=== PATIENT | male | born 1970 | race Caucasian/White ===

== ENCOUNTER 2020-03-10 10:00 | Outpatient (RCR) | payer OTHER, SELFPAY ==
--- NOTE | 2020-03-03 09:29 | HO.PHPPROGNO ---
Subjective Subjective Date of Service: 03/02/20 Reason For Visit: F33.2 Interim History: the patient has been anxious and ruminating. His sister 2 weeks ago suddenly in a car accident he will be attending the . He has been having difficulty with his ex- who has been making things more difficulty and less collaborative since she started dating someone. Patient on Seroquel he is only able to take a half tab 2 times a day 1 tab bedtime. Nortriptyline was on hold secondary to agitation. No SI Side effects from medications: Yes (sedation) Attending Groups: Yes Mental Status Exam Mental Status Exam Patient Orientation: Person, Place, Time and Situation Level of Consciousness: Awake and Appropriate Patient Behavior: Appropriate Mood Description: Depressed, Anxious and Apprehensive Affect Description: Anxious and Labile (mild) Patient Cognition Impaired: No Ability to Follow Directions: Good Speech Pattern: Clear Memory Description: Intact Hallucinations: None Delusions: Not Present Thought Content: positive for Preoccupation and positive for Logical Depressive Symptoms: Increased Anxiety and Increased Irritability Judgement: Good Judgement and Insight: patient anxious and ruminating but was logical cooperative able to problem solve asking for help Assessment & Plan Assessment & Plan (1) PTSD (post-traumatic stress disorder): Status: Acute Code(s): F43.10 - Post-traumatic stress disorder, unspecified (2) Recurrent depressive disorder, current episode moderate: Status: Inactive Code(s): F33.1 - Major depressive disorder, recurrent, moderate (3) Agitated depression: Status: Inactive Code(s): F32.2 - Major depressive disorder, single episode, severe without psychotic features Assessment and Plan: continue PHP treatment plan restart nortriptyline at 10 mg at bedtime continue Seroquel consider change to Abilify question agitated depression PTSD versus cycling mood disorder Certification I certify that partial hospital treatment is medically necessary due to the symptoms and problems resulting from the patient's mental illness and the failure to treat the patient at the partial hospital level of care would likely result in the patient requiring inpatient psychiatric care which could not be prevented at a less intensive level of care. Greater than 50% of the session was spent on counseling and/or coordination of care Discharge Plan Discharge Attending provider: Malcolm Alonso
--- NOTE | 2020-03-03 14:25 | PC.NURSE ---
Patient did not show up to the program this morning. Called patient and he stated he was attending his sisters . Staff was not aware of this. Patient requested a call later in the afternoon as he wanted staff to check in with him. Called patient back. Patient presented with depressed mood. Stated his sister passed 3 weeks ago in a fatal car accident stating her car went over a bridge. Patient upset as his ex would not let their daughter attend the . Patient did state that he has her Friday and is looking forward to spending time with her. Patient plans on attending the program on Friday. Looking into grief groups online. Patient denied SI or thoughts to harm himself.
--- NOTE | 2020-03-06 12:44 | P.PNPSP_ITS ---
Subjective Subjective Date of Service: 03/06/20 Reason For Visit: F33.2 Complains of panic attacks racing thoughts f Interim History: the patient is seen tele health visit at [facility]. Patient seems somewhat calmer more stable and less reactive. He remains quite anxious and ruminating particularly in the evening when he is alone. He does have intermittent panic attacks sense of dread and fear that he will not wake up. He has been taking Seroquel 12.5 mg twice a day and 25 mg at bedtime lorazepam I 0.5 mg at bedtime. No active SI sleep is fair concentration impaired ability to enjoy things impaired. He was able to tolerate his sister's and this went reasonably well Side effects from medications: Yes (sedation) Attending Groups: Yes Mental Status Exam Mental Status Exam Patient Orientation: Person, Place, Time and Situation Level of Consciousness: Awake Patient Behavior: Appropriate and Talkative Mood Description: Anxious and Apprehensive Affect Description: Depressed, Anxious and Apprehensive Ability to Follow Directions: Good (improving) Speech Pattern: Clear Hallucinations: None Delusions: Not Present Thought Process: Intact and Distracted Thought Content: positive for Obsessional Thoughts, positive for Hypochondriasis, positive for Suicidal Ideation (denies ) and positive for Homicidal Ideation (none) Depressive Symptoms: Increased Anxiety, Diff. Making Decisions and Difficulty Concentrating Judgement and Insight: improving insight judgment less agitation Assessment & Plan Assessment & Plan (1) PTSD (post-traumatic stress disorder): Status: Acute Code(s): F43.10 - Post-traumatic stress disorder, unspecified (2) Agitated depression: Status: Acute Code(s): F32.2 - Major depressive disorder, single episode, severe without psychotic features (3) Panic disorder: Status: Acute Code(s): F41.0 - Panic disorder [episodic paroxysmal anxiety] Assessment and Plan: reviewed with patient relaxation breathing for panic. Self talk. Patient will start clonazepam 0.5 mg at bedtime and a 0.5 mg in the evening this was prescribed 1 week ago at his doctor's office. Seroquel increased to 12.5 mg the morning 25 mg approximately at 04:00 o'clock in 25 mg at bedtime increase nortriptyline to 20 mg at bedtime. Patient the age to understand regarding medication like nortriptyline will need to be taken for a number of weeks for it to have its affect he does seem to be improving Certification I certify that partial hospital treatment is medically necessary due to the symptoms and problems resulting from the patient's mental illness and the failure to treat the patient at the partial hospital level of care would likely result in the patient requiring inpatient psychiatric care which could not be prevented at a less intensive level of care. Greater than 50% of the session was spent on counseling and/or coordination of care Discharge Plan Discharge Attending provider: Malcolm Alonso
--- NOTE | 2020-03-08 15:07 | PM.EVENT ---
Event Note Event Note: [facility] [employer] was asked by [facility] team to call patient as he was reporting insomnia. Several calls to pt who unfortunately has an incorrect telephone number in the system. Pt reached at [phone]. He reports severe anxiety and at the same time feeling drugged, tired, oversleeping. Denies precipitant other than to report the passing of his sister last week, but in reflecting thought he did well managing her services. Reports just increasing Nortriptyline to [address] Alonso and initiating Klonopin 0.5 mg evening and 0.5 mg hs from OP team. Expressed concern with Seroquel as he believes that 25 mg HS will not allow him to be coherent and able to awaken should his child need his attention during the night. Currently reports taking HS dose at 10 pm. Discussed sleep schedule and allowing medications time to metabolize. Report current sleep schedule is 2am-7am Sun-Wed, and essentially no sleep Wed-Sat as he fears dying in his sleep. Reports he has his daughter Sun-Wed and is able to sleep for a brief time while she is there. Discussed his belief that Seroquel makes him more agitated. Also reports APPLE without CPAP due to claustrophobia. Pt precipitously ended our discussion stated he needed to attend a vet appointment as he was planning to have his cat euthanized today. No new interventions were implemented as we were still in an assessment/problem solving phase of our discussion.
--- NOTE | 2020-03-09 07:30 | PC.NURSE ---
Pt called (7:25 am) and I spoke with him. He sounded agitated and said he wont be able to attend group today. I asked if he was able to talk to the Prescriber yesterday (Daniel Mena APRN), and he said yes. He complained/ shouted that no one was willing to help him yesterday, stating noone is there for me anyway so what does it matter . He said he hasn't slept for three days. He said DEBBIE Sanchez told him the doctor would call him today, but he said he wont be around to receive the call. When I asked what he meant by this, he said, Well, I'm not suicidal! . He said he will be too busy today to receive a call from the doctor today. I asked if he would come in tomorrow, and he said probably not. No one is there for me anyway. Theres no need. When I began to speak, he hung up. He then called Valencia Gibbons ZURDO and spoke with her.
--- NOTE | 2020-03-09 08:36 | PC.NURSE ---
Team met to discuss concerns regarding Pt and how much he is struggling with reports of him not sleeping for 72 hours and having intense anxiety. Discussed the recommendation of a crisis assessment due to these concerns. Attempted to call pt to recommended a crisis assessment. Left message for pt to return call. Will try again later.
--- NOTE | 2020-03-09 11:27 | PC.NURSE ---
Pt had called Christen (his assigned clinician) earlier this morning to report he would not be in group today due to feeling tired. He also stated this information in a message left on the [facility] intake line. He called Valencia (not his assigned clinician) who told him if he wasn't in group for the day he would not be able to speak with a medication provider and directed him to call this clinician. The following information was obtained over a series of phone calls from [phone] to [phone] because the pt's phone kept dropping the call. Pt began the conversation yelling at this clinician stating we lied and threatened him when he was told that he could not see a medication provider if he was not going to attend groups today. Attempted to explain that it was just for the day and he could see a medication provider on his next scheduled day of attendance as well as the main focus of treatment in [facility] is group treatment. He continued to interrupt the explanation and yell at this clinician, stating it was our fault he drank an energy drink so he could stay up for groups. Attempted to explain we were under the impression he had called out for the day as stated in a voicemail and reported to Christen this morning. Recommended due to the level of distress, he obtain a crisis evaluation. Pt refused, stating he was not suicidal, he doesn't have those problems , and he was not going to hurt himself. Attempted to explain crisis is also for those are experiencing disregulation and other mental health symptoms. He still refused a crisis assessment. At the end of the conversations, pt presented as calmer with little insight to his intense emotional reaction. Pt reported he was going to take his medication and go to bed and he would attend [facility] tomorrow for his last day of treatment.
--- NOTE | 2020-03-10 15:35 | PC.NURSE ---
I called patient and reviewed discharge information. He informed me that his therapist, Alycia Beckford at [facility], has released him from her care. He said he's not sure if they are transferring him to another therapist. We discussed possibility of doing the day treatment program. I called [facility] and the business operations specialist told me that pt does not appear to be released from Alycia Beckford's care. I then was transferred to this therapist's and I left a message inquiring about the situation. I also called and spoke to Bernadette Alfaro at [facility] about day treatment. She said that the patient is known to them and that he is not a good fit for day treatment, as they only run one group a day and pt needs more in their opinion. I then called and LM to see if pt might attend [facility]'s PHP.
--- NOTE | 2020-03-11 00:32 | HO.PHPPROGNO ---
Subjective Subjective Reason For Visit: F33.2 Complains of panic attacks racing thoughts f Interim History: patient has been anxious complains of insomnia he states in speaking to his he had done best on a combination of citalopram and Lamictal. He is only taking Seroquel 12.5 mg at bedtime has not started clonazepam continues to have a difficult time at the [facility] he is scheduled for discharge today Mental Status Exam Mental Status Exam Narrative: denies any active thoughts of self-harm future oriented asking for help overly triggered at [facility] Patient Orientation: Person, Place, Time and Situation Level of Consciousness: Awake Patient Behavior: Appropriate and Talkative Mood Description: Anxious and Apprehensive Affect Description: Depressed, Anxious and Apprehensive Patient Cognition Impaired: No Ability to Follow Directions: Fair (improving) Speech Pattern: Clear Memory Description: Intact Assessment & Plan Assessment & Plan (1) PTSD (post-traumatic stress disorder): Status: Acute Code(s): F43.10 - Post-traumatic stress disorder, unspecified (2) Agitated depression: Status: Acute Code(s): F32.2 - Major depressive disorder, single episode, severe without psychotic features (3) Panic disorder: Status: Acute Code(s): F41.0 - Panic disorder [episodic paroxysmal anxiety] Assessment and Plan: patient appears generally stable for discharge future oriented no SI. Has been triggered [facility] at times he is asking to be restarted on citalopram 5 mg daily Lamictal 12.5-25 mg daily which he states had been helpful to him in the past according to his ex-. Patient will follow up with his outpatient psychiatrist and therapist Greater than 50% of the session was spent on counseling and/or coordination of care Discharge Plan Discharge Attending provider: Malcolm Alonso Medications: New lamotrigine [Lamictal] 25 mg tablet 25 mg PO DAILY 30 Days Qty: 30 RF: 0 citalopram 10 mg tablet See Rx Instructions .ROUTE .COMPLEX 30 Days Qty: 14 RF: 0 Referrals: Alin Messina MD [Physician] - ( patient started on citalopram 5 mg Lamictal 25 mg was triggered at the [facility] overly stimulating less agitated)
== END 2020-03-10 23:55 | disposition home or self-care (01) ==
LOC: HO.PHPA 10:00
PROVIDERS: Visit Provider Psychiatry & Neurology Psychiatry
DX: F33.2 Major depressive disorder, recurrent severe without psychotic features (principal); F43.10 Post-traumatic stress disorder, unspecified; F41.0 Panic disorder [episodic paroxysmal anxiety]; Z79.899 Other long term (current) drug therapy
CPT/HCPCS: 90853; 99213

== ENCOUNTER 2020-07-26 11:15 | Outpatient (RCR) | payer OTHER, SELFPAY ==
[2020-07-26 12:16] VITALS: BMI 41.5
--- NOTE | 2020-07-26 12:35 | PC.ADMIT ---
Patient is a 49 year old male who referred himself to the [facility] program d/t increased depression with passive SI with increased anxiety and PTSD sxs. Patient was on a GRAHAM from work d/t the pandemic however he recently returned to work and is extremely fearful he will contract COVID. In addition patient reports multiple medical issues thus increasing his anxiety about brook the Virus. Patient also stated he is having issues with his ex-. Patient stated he is here at [facility] d/t, I need to get my anxiety under control and stop thinking the way I do. Patient has NIDDM and stated he has not checked his blood sugars in 2 months d/t increasing anxiety. Stated he has all the equipment to complete. Patient stated he will try and take it tomorrow. Historically patient reports his Blood Sugars run in the 100's-150's. Patient reports that he has been taking his medications as prescribed. Reconciled patient's medications with patient and patient's pharmacy. Patient presents with depressed anxious affect. Denied SI at present. Asked who he could call if feeing unsafe and patient stated his mother or crisis. Patient gave verbal permission to email him a copy of his safety plan. Patient c/o L knee pain. Stated he has an appointment to get an x-ray in a few days. In addition, patient reports poor sleep and has been binge eating.
--- NOTE | 2020-07-26 16:31 | HO.PS.ADMBH ---
HPI Chief Complaint: depression Sources of Information: patient interviewed and chart reviewed HPI Narrative: 49 yo male, hx of depression, PTSD reports an increase in depressive, anxious sx with paranoia and insomnia ([place]). Reports increase in appetite-denies SI- never-I have a child . Reports sx increase with a return to work (pt works in residential care). COVID changes and irregularities have been a major stress-pt discussed concerns with employer and was told he could be terminated. Past Psychiatric History: Sees Linda CRANDALL for psychotherapy and Dr. Canales for psychopharmacology Medical Evaluation Reviewed: No (no evaluation to review.) [facility] Medical History Abdominal hernia Agitated depression Diverticulitis GERD (gastroesophageal reflux disease) Hyperlipemia Hypertension Non-insulin dependent diabetes mellitus Panic disorder PTSD (post-traumatic stress disorder) Recurrent depressive disorder, current episode moderate Family History: depression, anxiety, addiction Social History: Lives alone, works in residential care. Has a daughter and step-son Substance History: alcohol every 2-3 months Trauma History: yes Diagnostics Vital Signs (24Hr): Body Mass Index 41.5 Meds/Allergies Meds Narrative: Atenolol, Azelastine [place], Cetrinzine, Chlorthalidone, Jardiance, Simvastatin, Omeprazole, Losartin Nortriptyline 10 mg tid Hydroxyzine daily Lorazepam 0.5 mg bid Allergies Allergies Allergy/AdvReac Type Severity Reaction Status Date / Time Iodinated Contrast Media Allergy Intermediate ANAPHYLAXIS Unverified 02/17/20 16:12 [IV DYE, IODINE CONTAINING CONTRAST ] Mental Status Exam Mental Status Exam Patient Appearance: Appropriate Patient Orientation: Person, Place, Time and Situation Level of Consciousness: Awake and Alert Patient Behavior: Appropriate Mood Description: Depressed and Anxious Affect Description: Flat Patient Cognition Impaired: No Ability to Follow Directions: Good Speech Pattern: Spontaneous Speech Memory Description: Intact Hallucinations: None Delusions: Not Present Thought Process: Intact Thought Content: positive for Intact Depressive Symptoms: Increased Anxiety, Insomnia, Diff. Making Decisions (work, COVID has put him to some hard decision making tasks), Difficulty Sleeping, Increased Fatigue and Thoughts of /Suicide (denies plan, intent) Judgement: Good Assessment & Plan Assessment & Plan (1) PTSD (post-traumatic stress disorder): Status: Acute Code(s): F43.10 - Post-traumatic stress disorder, unspecified (2) Agitated depression: Status: Acute Code(s): F32.2 - Major depressive disorder, single episode, severe without psychotic features Assessment and Plan: -Seroquel 25-50 mg HS prn insomnia (3) Panic disorder: Status: Acute Code(s): F41.0 - Panic disorder [episodic paroxysmal anxiety] Patient educated on: medication risk/benefits and therapeutic strategies Informed Consent: understands and further education needed Reason for continued partial hosp. stay Substantial Risk for: rapid decompensation Certification I certify that partial hospital treatment is medically necessary due to the symptoms and problems resulting from the patient's mental illness and the failure to treat the patient at the partial hospital level of care would likely result in the patient requiring inpatient psychiatric care which could not be prevented at a less intensive level of care. Telehealth Telehealth Location of provider rendering services: practice address Location of patient: address on file Patient Identification confirmed using: Name, : Yes Telehealth method: video Patient verbally consented to treatment: Yes Patient verbally consented to billing insurance company: Yes Patient informed of any privacy concerns related to visit: Yes Time spent with patient (mins): 35
--- NOTE | 2020-07-27 15:44 | PC.NURSE ---
Pt did not show for treatment today, and did not call. I called him and LM at 9:20am. After consulting with [facility], I called his emergency contact (his mother) and spoke to her. She said he is probably sleeping, as he worked all night. 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 She said she called also and LM. She said she is at work, and cannot go check on him, but said she is not at all concerned.
--- NOTE | 2020-07-28 12:36 | PC.NURSE ---
Pt did not attend group but called later in the morning reporting he could not leave from work both days. Returned pt call left a message regarding his absences and lack of contact. Told him if he did not attend on Friday that he would have the complete a re assessment.
== END 2020-07-26 23:55 | disposition left against medical advice (07) ==
LOC: HO.PHPA 11:15
PROVIDERS: Visit Provider Psychiatry & Neurology Psychiatry
DX: F43.10 Post-traumatic stress disorder, unspecified (principal); F32.2 Major depressive disorder, single episode, severe without psychotic features; F41.0 Panic disorder [episodic paroxysmal anxiety]
CPT/HCPCS: 90791; 90853

== ENCOUNTER 2021-11-08 11:15 | Outpatient (RCR) | payer OTHER, SELFPAY ==
--- NOTE | 2021-10-22 09:54 | PC.NURSE ---
Patient did not show up to community morning meeting. Patient called Estefani and left a message stating he did not receive a link to the meeting or groups. Estefani received message at 0945. Called patient and left him a message to call me back.
[2021-10-23 12:11] VITALS: BMI 41.5
--- NOTE | 2021-10-23 14:17 | PC.ADMIT ---
Patient is a 51 year old male who has a dx of MDD, recurrent severe. He was referred to PHP by his therapist d/t an increase in depression, anxiety, and feeling worthless and useless at times. Patient reported poor sleep at times and is scheduled for a sleep study in November 2021 regarding Sleep Apnea. Patient has been isolating on the days he does not have his 7 year old daughter. He reportedly has his daughter 3 days a week. Patient also reported feelings of frustration with his ex-. Patient is alert and oriented x4. Calm and cooperative. Presented with depressed mood and affect. Denied SI, stating never . Emailed patient a copy of his safety plan if needed. Medications reconciled with patient and patient's pharmacy. Patient stated he is not taking Hydroxyzine at HS as it made him feel too drowsy in the morning. Also stated he was taken off Atenolol and not continuing Zyrtec. In addition he stated he stopped Nortriptyline as it made him feel too drowsy. Patient reports he does not have a prescriber at this time as Dr Amos left the practice a year ago and patient was not assigned another prescriber thus his PCP has been prescribing. Staff is aware.
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
--- NOTE | 2021-10-24 16:04 | PC.NURSE ---
I called and spoke to pt. Reviewed treatment plan and discussed possibilities for aftercare. Pt has a therapist, but has not had a med provider since the loss of Dr. García a year ago. After discussing option, pt opted to have me refer him to a local mental health agency for therapy and med management. I agreed to do so.
--- NOTE | 2021-10-25 16:04 | PC.NURSE ---
Case opened in treatment team.
--- NOTE | 2021-10-26 10:55 | P.PNPSP_ITS ---
Subjective Subjective Date of Service: 10/26/21 Reason For Visit: anxiety,PTSD Guardianship: No Medical Problems Affecting Mental Status: No Interim History: Anxious, depressed mood and affect. Found out last night he is being evicted, currently distraught, focused on housing. Has not yet started sertraline. No reports of SI/HI/SIB, no safety concern. Medication Compliance: Intermittent Side effects from medications: No Attending Groups: Yes Review of Systems Acute medical concerns: No Medical Review of Systems: unchanged Review of Systems Review of Systems Yes all other systems are reviewed and are negative Constitutional: Reports no additional constitutional complaints Mental Status Exam Mental Status Exam Narrative: NAD. No SI/HI reported. No perceptual disturbances noted. Patient Appearance: Appropriate Patient Orientation: Person, Place, Time and Situation Level of Consciousness: Awake, Appropriate and Alert Patient Behavior: Appropriate, Cooperative and Good Eye Contact Mood Description: Depressed and Anxious Affect Description: Depressed, Anxious and Labile Patient Cognition Impaired: No Ability to Follow Directions: Good Speech Pattern: Clear, Appropriate and Coherent Memory Description: Intact Hallucinations: None Delusions: Not Present Thought Process: Intact Thought Content: positive for Intact Depressive Symptoms: Increased Anxiety, Difficulty Sleeping, Loss of Int. in Activity, Hopelessness, Feelings of Guilt, Unhappiness, Increased Fatigue and Low Self Esteem Judgement: Fair Diagnostics Vital Signs (24Hr): BMI result Body Mass Index 41.5 Assessment & Plan Assessment & Plan (1) Major depressive disorder, recurrent severe without psychotic features: Status: Acute Code(s): F33.2 - Major depressive disorder, recurrent severe without psychotic features Assessment and Plan: Patient presents today with increased anxiety, mood lability. We reviewed symptoms of agitated depression, bipolar disorder. Also discussed risks of activation with SSRI if does have an underlying mood disorder such as bipolar. He stated he has not even started taking the sertraline yet. He states that he does have increased anxiety and agitation, mostly related to receiving eviction notice last evening. Request medications to help with this. At this time he would like to continue with the sertraline, and was advised to stop immediately if he finds it activating in any way. No thoughts of harm to self or others, no safety concern at this time. Discussed starting the sertraline, also adding quetiapine at this time. Discussion included risks, benefits, adverse effects both common serious, alternatives of treatment. Patient was agreeable with this plan. Phone numbers provided for legal aged and way [employer], in order to help with eviction and rental assistance. (2) Panic disorder: Status: Acute Code(s): F41.0 - Panic disorder [episodic paroxysmal anxiety] (3) PTSD (post-traumatic stress disorder): Status: Acute Code(s): F43.10 - Post-traumatic stress disorder, unspecified (4) Agitated depression: Status: Acute Code(s): F32.2 - Major depressive disorder, single episode, severe without psychotic features Assessment and Plan: History of diagnosis of agitated depression. Plan 1. Continue with current [facility] plan of care. 2. 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 3. Start quetiapine 25 mg t.i.d. p.r.n. for anxiety. 4. Follow-up as per protocol. Patient educated on: diagnosis, medication risk/benefits and therapeutic strategies Informed Consent: understands Reason for contiued partial hosp. stay Substantial Risk for: inability to function, rapid decompensation and med/psych decompensation Certification I certify that partial hospital treatment is medically necessary due to the symptoms and problems resulting from the patient's mental illness and the failure to treat the patient at the partial hospital level of care would likely result in the patient requiring inpatient psychiatric care which could not be prevented at a less intensive level of care. I spent minutes with the patient and/or on the patient floor today, greater than?50% of which was spent counseling/coordinating care. Discharge Plan Discharge Attending provider: Omar Hastings Medications: New sertraline 50 mg tablet 50 mg PO DAILY 7 Days Qty: 7 0RF Rx Instructions: take 25mg (1/2 tab) for 2 days, then start 50mg (1 tab) daily. quetiapine 25 mg tablet 25 mg PO TID PRN (Reason: anxiety) 7 Days Qty: 21 0RF No Action chlorthalidone 25 mg Tablet 25 mg PO DAILY 0RF lorazepam 0.5 mg Tablet 0.5 mg PO BID PRN (Reason: Anxiety) 0RF Label Comments: Patient stated he takes PRN omeprazole 20 mg Capsule,Delayed Release(Dr/Ec) 20 mg PO BID 0RF losartan 100 mg Tablet 100 mg PO DAILY 0RF fluticasone propionate 50 mcg/actuation [place],Suspension 1 spray INTRANASAL DAILY 0RF Jardiance 25 mg Tablet 25 mg PO DAILY 0RF atorvastatin 20 mg Tablet 20 mg PO BEDTIME 0RF sumatriptan succinate 25 mg Tablet 25 mg PO DAILY PRN (Reason: Migraine Headache) 0RF Rx Instructions: Take one tab at onset of Migraine H/A. If ineffective after 2 hours may repeat dose one time. ipratropium bromide 21 mcg (0.03 %) spray,non-aerosol 2 spray intranasal TID 0RF Victoza 2-Henrique 0.6 mg/0.1 mL (18 mg/3 mL) Pen Injector 1.2 mg SUBCUT DAILY 0RF Telehealth Telehealth Location of provider rendering services: practice address Location of patient: address on file Patient Identification confirmed using: Name, : Yes Telehealth method: video Patient verbally consented to treatment: Yes Patient verbally consented to billing insurance company: Yes Patient informed of any privacy concerns related to visit: Yes Minutes spent on Phone/Video with Pt.: 15
--- NOTE | 2021-10-30 16:56 | PC.NURSE ---
With pt's permission, I faxed referral packet over to [facility] and emailed the same.
--- NOTE | 2021-10-31 14:41 | HO.PHPPROGNO ---
Subjective Subjective Date of Service: 10/31/21 Reason For Visit: anxiety,PTSD Guardianship: No Medical Problems Affecting Mental Status: No Interim History: Describes mood as ?not bad ?. Then states mood is approximately the same as when he began PHP. No SI reported. Started sertraline yesterday. Is not taking quetiapine, does not plan to take it. States his pharmacist informed him it could interfere with his apnea, as he is not currently using CPAP machine. Medication Compliance: Yes Side effects from medications: No Review of Systems Acute medical concerns: No Medical Review of Systems: unchanged Review of Systems Review of Systems Yes all other systems are reviewed and are negative Constitutional: Reports no additional constitutional complaints Mental Status Exam Mental Status Exam Narrative: NAD. No SI/HI reported. No perceptual disturbances noted. No irritability, no agitation noted today. Patient Appearance: Appropriate Patient Orientation: Person, Place, Time and Situation Level of Consciousness: Awake, Appropriate and Alert Patient Behavior: Appropriate, Cooperative and Good Eye Contact Mood Description: Depressed and Anxious Affect Description: Depressed and Anxious Patient Cognition Impaired: No Ability to Follow Directions: Good Speech Pattern: Clear, Appropriate and Coherent Memory Description: Intact Hallucinations: None Delusions: Not Present Thought Process: Intact Thought Content: positive for Intact Depressive Symptoms: Increased Anxiety, Loss of Int. in Activity, Feelings of Guilt, Unhappiness, Increased Fatigue and Low Self Esteem Judgement: Fair Diagnostics Vital Signs (24Hr): BMI result Body Mass Index 41.5 Assessment & Plan Assessment & Plan (1) Major depressive disorder, recurrent severe without psychotic features: Status: Acute Code(s): F33.2 - Major depressive disorder, recurrent severe without psychotic features Assessment and Plan: States his mood is not bad today. States level of depression and anxiety, panic are about the same as when he began PHP. Says he started taking sertraline yesterday. Has not taken the quetiapine, due to concerns regarding his sleep apnea. No SI/HI reported, no safety concerns at this time. Says that the groups are helpful. (2) Panic disorder: Status: Acute Code(s): F41.0 - Panic disorder [episodic paroxysmal anxiety] (3) Agitated depression: Status: Acute Code(s): F32.2 - Major depressive disorder, single episode, severe without psychotic features (4) PTSD (post-traumatic stress disorder): Status: Acute Code(s): F43.10 - Post-traumatic stress disorder, unspecified Plan 1. continue with current [facility] plan of care. 2. Discontinue quetiapine. 3. Continue sertraline as prescribed. 4.Follow-up with patient as per protocol. Patient educated on: diagnosis, medication risk/benefits and therapeutic strategies Reason for contiued partial hosp. stay Substantial Risk for: inability to function, rapid decompensation and med/psych decompensation Certification I certify that partial hospital treatment is medically necessary due to the symptoms and problems resulting from the patient's mental illness and the failure to treat the patient at the partial hospital level of care would likely result in the patient requiring inpatient psychiatric care which could not be prevented at a less intensive level of care. I spent minutes with the patient and/or on the patient floor today, greater than?50% of which was spent counseling/coordinating care. Discharge Plan Discharge Attending provider: Omar Hastings Medications: New sertraline 50 mg tablet 50 mg PO DAILY 7 Days Qty: 7 0RF Rx Instructions: take 25mg (1/2 tab) for 2 days, then start 50mg (1 tab) daily. No Action chlorthalidone 25 mg Tablet 25 mg PO DAILY 0RF lorazepam 0.5 mg Tablet 0.5 mg PO BID PRN (Reason: Anxiety) 0RF Label Comments: Patient stated he takes PRN omeprazole 20 mg Capsule,Delayed Release(Dr/Ec) 20 mg PO BID 0RF losartan 100 mg Tablet 100 mg PO DAILY 0RF fluticasone propionate 50 mcg/actuation [place],Suspension 1 spray INTRANASAL DAILY 0RF Jardiance 25 mg Tablet 25 mg PO DAILY 0RF atorvastatin 20 mg Tablet 20 mg PO BEDTIME 0RF sumatriptan succinate 25 mg Tablet 25 mg PO DAILY PRN (Reason: Migraine Headache) 0RF Rx Instructions: Take one tab at onset of Migraine H/A. If ineffective after 2 hours may repeat dose one time. ipratropium bromide 21 mcg (0.03 %) spray,non-aerosol 2 spray intranasal TID 0RF Victoza 2-Henrique 0.6 mg/0.1 mL (18 mg/3 mL) Pen Injector 1.2 mg SUBCUT DAILY 0RF Telehealth Telehealth Location of provider rendering services: practice address Location of patient: address on file Patient Identification confirmed using: Name, : Yes Telehealth method: video Patient verbally consented to treatment: Yes Patient verbally consented to billing insurance company: Yes Patient informed of any privacy concerns related to visit: Yes Minutes spent on Phone/Video with Pt.: 15
--- NOTE | 2021-11-01 15:57 | PC.NURSE ---
I received appointment times and dates for pt to receive services at [facility]. I called pt and informed him of these appointments.
--- NOTE | 2021-11-07 12:04 | P.PNPSP_ITS ---
Subjective Subjective Date of Service: 11/07/21 Reason For Visit: anxiety,PTSD Interim History: When asked to describe mood, states ?it's just a crappy day ?. When asked to elaborate, he states ?it's just ongoing stuff ?. Continues with dysphoric mood, anxiety. No SI/SIB/HI, no safety concerns. Reports not yet noticing much improvement with sertraline. Does not want dose increase at this time. Medication Compliance: Yes Side effects from medications: No Attending Groups: Yes Review of Systems Acute medical concerns: No Medical Review of Systems: unchanged Review of Systems Review of Systems Yes all other systems are reviewed and are negative Constitutional: Reports no additional constitutional complaints Mental Status Exam Mental Status Exam Narrative: NAD. No SI/HI reported. No perceptual disturbances noted. No irritability, no agitation noted today. Patient Appearance: Appropriate Patient Orientation: Person, Place, Time and Situation Level of Consciousness: Awake, Appropriate and Alert Patient Behavior: Appropriate, Cooperative and Good Eye Contact Mood Description: Depressed and Anxious Affect Description: Depressed and Anxious (Appears less anxious.) Patient Cognition Impaired: No Ability to Follow Directions: Good Speech Pattern: Clear, Appropriate and Coherent Memory Description: Intact Hallucinations: None Delusions: Not Present Thought Process: Intact Thought Content: positive for Intact Depressive Symptoms: Loss of Int. in Activity, Unhappiness and Increased Fatigue Judgement: Fair Diagnostics Vital Signs (24Hr): BMI result Body Mass Index 41.5 Assessment & Plan Assessment & Plan (1) Major depressive disorder, recurrent severe without psychotic features: Status: Acute Code(s): F33.2 - Major depressive disorder, recurrent severe without psychotic features Assessment and Plan: Reports does not notice real difference yet from sertraline. Discussed increasing dose, he would prefer to remain at current dose, and give it more time. No SI/HI, no thoughts of harm to self or others, no safety concerns at this time. Patient reports his last day here is tomorrow. We discussed his upcoming appointments at [facility]. (2) Panic disorder: Status: Acute Code(s): F41.0 - Panic disorder [episodic paroxysmal anxiety] Assessment and Plan: Did not report/discuss any recent incidence of panic. (3) PTSD (post-traumatic stress disorder): Status: Acute Code(s): F43.10 - Post-traumatic stress disorder, unspecified Assessment and Plan: Does not report any ongoing overt PTSD symptoms at this time. Plan 1. Continue with current [facility] plan of care, patient reports his last day and program is tomorrow. 2. Continue with sertraline 50mg daily, script for 30-day supply sent to pharmacy. 3. Follow-up if needed tomorrow, otherwise appears stable for discharge. Patient educated on: diagnosis, medication risk/benefits and therapeutic strategies Informed Consent: understands Reason for contiued partial hosp. stay Substantial Risk for: stable for discharge Certification I certify that partial hospital treatment is medically necessary due to the symptoms and problems resulting from the patient's mental illness and the failure to treat the patient at the partial hospital level of care would likely result in the patient requiring inpatient psychiatric care which could not be prevented at a less intensive level of care. I spent minutes with the patient and/or on the patient floor today, greater than?50% of which was spent counseling/coordinating care. Discharge Plan Discharge Attending provider: Omar Hastings Additional Instructions: 1) telehealth appointment with director Elier Vazquez for a diagnostic intake for individual therapy at [facility]) in [address] on 11/14/21 at 3:45 pm. This appointment is one hour long. Elier will do the intake and then transfer the client to a female therapist, as this is what pt has requested. 2) telehealth appointment with Tawana Chiu for a psychiatric evaluation for medication management at [facility]) in [address] on 12/05/21 at 2 pm. This appointment is one hour long. 3) telehealth appointment with Tawana Chiu for a follow-up for medication management at [facility]) in [address] on 01/03/22 at 12:40 pm. This appointment is 20 minutes long. Medications: New sertraline 50 mg tablet 50 mg PO DAILY 30 Days Qty: 30 0RF No Action chlorthalidone 25 mg Tablet 25 mg PO DAILY lorazepam 0.5 mg Tablet 0.5 mg PO BID PRN (Reason: Anxiety) Label Comments: Patient stated he takes PRN omeprazole 20 mg Capsule,Delayed Release(Dr/Ec) 20 mg PO BID losartan 100 mg Tablet 100 mg PO DAILY fluticasone propionate 50 mcg/actuation [place],Suspension 1 spray INTRANASAL DAILY Jardiance 25 mg Tablet 25 mg PO DAILY atorvastatin 20 mg Tablet 20 mg PO BEDTIME sumatriptan succinate 25 mg Tablet 25 mg PO DAILY PRN (Reason: Migraine Headache) Rx Instructions: Take one tab at onset of Migraine H/A. If ineffective after 2 hours may repeat dose one time. ipratropium bromide 21 mcg (0.03 %) spray,non-aerosol 2 spray intranasal TID Victoza 2-Henrique 0.6 mg/0.1 mL (18 mg/3 mL) Pen Injector 1.2 mg SUBCUT DAILY Stand Alone Forms: Patient Portal Discharge page Telehealth Telehealth Location of provider rendering services: practice address Location of patient: address on file Patient Identification confirmed using: Name, : Yes Telehealth method: video Patient verbally consented to treatment: Yes Patient verbally consented to billing insurance company: Yes Patient informed of any privacy concerns related to visit: Yes Minutes spent on Phone/Video with Pt.: 15
--- NOTE | 2021-11-09 09:46 | PC.NURSE ---
Patient discharged from the program on 11/08/21. Patient feeling anxious regarding discharge, denied SI or any safety issues. Reviewed patient medications with patient. Patient reports taking medications as prescribed.
== END 2021-11-08 23:59 | disposition home or self-care (01) ==
LOC: HO.PHPA 11:15
PROVIDERS: Visit Provider Psychiatry & Neurology Psychiatry
DX: F33.2 Major depressive disorder, recurrent severe without psychotic features (principal); F43.10 Post-traumatic stress disorder, unspecified; F41.0 Panic disorder [episodic paroxysmal anxiety]
CPT/HCPCS: 90791; 90853